=== PATIENT | female | born 1965 | race Caucasian/White ===

== ENCOUNTER 2024-08-03 18:25 | Emergency (ER) | payer BC ==
[~2024-08-03] VITALS: Ht 142.2 cm; Wt 87.1 kg
[~2024-08-03 18:25] MED LIST: ALLEGRA ALLERG180 MG PO; AUGMENTIN 875-1 EACH PO; BENICAR HCT 201 EACH; FLONASE16 GM; PROAIR HFA INH8.5 GM INH; SINGULAIR10 MG PO; SYMBICORT 16010.2 GM IH; ZYRTEC10 MG PO
[2024-08-03 18:53] VITALS: TEMP 98.1
[2024-08-03 19:22] LABS: BASOPHILS % 0.7 % (0.0-1.0); EOSINOPHILS # (AUTO) 0.2 (0.0-0.4); EOSINOPHILS % 3.3 % (0.0-6.0); HEMATOCRIT 39.8 % (34.2-44.1); HEMOGLOBIN 12.4 g/dL (12.0-16.0); LYMPHOCYTES # (AUTO) 1.7 (1.0-3.2); LYMPHOCYTES % 31.7 % (18.0-39.1); MEAN CORPUSCULAR HGB CONC 31.2 g/dL (31-35); MEAN CORPUSCULAR VOLUME 93.2 fL (81-99); MONOCYTES # (AUTO) 0.6 (0.2-0.8); MONOCYTES % 11.2 % (4.4-11.3); NEUTROPHILS # (AUTO) 2.9 (2.1-6.9); NEUTROPHILS % 52.9 % (38.7-80.0); PLATELET COUNT 352 x10e3/uL (140-360); RED BLOOD COUNT 4.27 x10e6/uL (3.6-5.1); RED CELL DISTRIBUTION WIDTH 13.9 % (11.7-14.4); WHITE BLOOD COUNT 5.46 x10e3/uL (4.8-10.8)
[2024-08-03 19:33] LABS: CLARITY,URINE SL CLOUDY (CLEAR); COLOR,URINE YELLOW (YELLOW); LEUKOCYTE ESTERASE ,URINE TRACE (NEGATIVE); NITRITE,URINE NEGATIVE (NEGATIVE); PH,URINE 7 (5 - 7); PROTEIN,URINE DIPSTICK NEGATIVE (NEGATIVE)
[2024-08-03 19:34] LABS: BILIRUBIN,URINE NEGATIVE (NEGATIVE); GLUCOSE, URINE NEGATIVE (NEGATIVE); KETONES,URINE NEGATIVE (NEGATIVE); URINE UROBILINOGEN 0.2 mg/dL (0.2 - 1)
[2024-08-03 19:41] LABS: ALANINE AMINOTRANSFERASE 43 IU/L (0-55); ALBUMIN 4.1 g/dL (3.5-5.0); ALBUMIN/GLOBULIN RATIO 1.5 (0.8-2.0); ALKALINE PHOSPHATASE 53 IU/L (40-150); ANION GAP 12.8 mmol/L (8-16); BILIRUBIN,TOTAL 0.4 mg/dL (0.2-1.2); BLOOD UREA NITROGEN 10 mg/dL (7-26); BUN/CREATININE RATIO 12 (6-25); CARBON DIOXIDE 26 mmol/L (22-29); CHLORIDE 105 mmol/L (98-107); CREATINE KINASE 55 IU/L (29-168); CREATININE, SERUM 0.82 mg/dL (0.57-1.11); EST GLOMERULAR FILTRATION RATE 82 ML/MIN (>=60); GLUCOSE 97 mg/dL (74-118); LIPASE 15 U/L (8-78); POTASSIUM 3.8 mmol/L (3.5-5.1); SODIUM 140 mmol/L (136-145); TOTAL PROTEIN 6.9 g/dL (6.5-8.1)
[2024-08-03 19:44] LABS: EPITHELIAL CELLS,URINE FEW /LPF
[2024-08-03 19:47] LABS: TROPONIN I < 0.001 ng/mL (0-0.300)
[2024-08-03] MEDS ORDERED: IOPAMIDOL 370 MG/ML 100 ML INFUS..BTL INJ ONE (19:57)
[2024-08-03] MEDS: Morphine 4mg INJECTION 4 MG/ML INJ IV STA (21:02)
[2024-08-03] MEDS: SODIUM CHLORIDE 0.9% 1000ML 1,000 ML IV STA (21:02)
[2024-08-03] MEDS: ONDANSETRON HCL INJ 2MG/ML 2ML 2 MG/ML VIAL IV STA (21:02)
[2024-08-03 22:14] VITALS: PULSE 68; RESP 16
[2024-08-03] MEDS ORDERED: ULTRAM 50MG50 MG PO (22:48)
[2024-08-03] MEDS ORDERED: DICYCLOMINE HCL10 MG PO (22:50)
[2024-08-03 22:57] VITALS: BP 133/73; PULSE 72; RESP 18; TEMP 98.4; O2SAT 100
== END 2024-08-03 23:02 | disposition home or self-care (01) ==
LOC: ER 19:00
DX: K31.84 Gastroparesis (principal); R10.13 Epigastric pain; E11.9 Type 2 diabetes mellitus without complications; I10 Essential (primary) hypertension; E78.5 Hyperlipidemia, unspecified; R16.1 Splenomegaly, not elsewhere classified; F84.0 Autistic disorder; K21.9 Gastro-esophageal reflux disease without esophagitis; R94.31 Abnormal electrocardiogram [ECG] [EKG]
CPT/HCPCS: 36415; 74177; 80053; 81001; 82550; 83690; 84484; 85025; 93005; 99284; J2270; J2405; J7030; Q9967

== ENCOUNTER 2025-09-14 17:01 | Emergency (ER) | payer BC ==
[~2025-09-14] VITALS: Ht 142.2 cm; Wt 93.0 kg
[~2025-09-14 17:01] MED LIST changes: +DICYCLOMINE HCL10 MG PO; +ULTRAM 50MG50 MG PO
[2025-09-14 17:26] VITALS: TEMP 98
[2025-09-14 19:11] LABS: BASOPHILS % 0.7 % (0.0-1.0); EOSINOPHILS % 3.2 % (0.0-6.0); LYMPHOCYTES % 27.7 % (18.0-39.1); MONOCYTES % 9.6 % (4.4-11.3); NEUTROPHILS % 58.4 % (38.7-80.0); RED CELL DISTRIBUTION WIDTH 13.8 % (11.7-14.4)
[2025-09-14 19:15] LABS: LEUKOCYTE ESTERASE ,URINE NEGATIVE (NEGATIVE); PROTEIN,URINE DIPSTICK NEGATIVE (NEGATIVE)
[2025-09-14 19:16] LABS: URINE UROBILINOGEN 0.2 mg/dL (0.2 - 1)
[2025-09-14 19:17] LABS: EPITHELIAL CELLS,URINE RARE /LPF; WBC,URINE (MAN) 0-5 /HPF (0-5)
[2025-09-14 19:30] VITALS: PULSE 61; RESP 12
[2025-09-14 19:30] LABS: EST GLOMERULAR FILTRATION RATE 80.0 ML/MIN (>=60)
[2025-09-14] MEDS: KETOROLAC TROMETHAMINE 30 MG/ML VIAL IV STA (19:37)
[2025-09-14] MEDS: SODIUM CHLORIDE 0.9% 1000ML 1,000 ML IV ONE (19:37)
[2025-09-14] MEDS: ONDANSETRON HCL INJ 2MG/ML 2ML 2 MG/ML VIAL IV STA (19:37)
[2025-09-14] MEDS ORDERED: IOPAMIDOL 370 MG/ML 100 ML INFUS..BTL INJ ONE (20:11)
[2025-09-14] MEDS ORDERED: METRONIDAZOLE500 MG PO (21:42)
[2025-09-14] MEDS ORDERED: CIPRO500 MG PO (21:42)
[2025-09-14 22:58] VITALS: BP 116/77; PULSE 68; RESP 13; TEMP 97.8; O2SAT 96
== END 2025-09-14 22:25 | disposition home or self-care (01) ==
LOC: ER 18:52
DX: R10.31 Right lower quadrant pain (principal); K57.32 Diverticulitis of large intestine without perforation or abscess without bleeding; R16.0 Hepatomegaly, not elsewhere classified; K76.0 Fatty (change of) liver, not elsewhere classified; I10 Essential (primary) hypertension; I48.91 Unspecified atrial fibrillation; J45.909 Unspecified asthma, uncomplicated; R94.31 Abnormal electrocardiogram [ECG] [EKG]
CPT/HCPCS: 36415; 74177; 80053; 81001; 83690; 84484; 85025; 93005; 99284; J1885; J2405; J2470; J7030; Q9967